=== PATIENT | male | born 1950 | race Caucasian/White ===

== ENCOUNTER → 2017-08-18 | Outpatient (CLI) | payer MEDICARE ==
[~2017-08-18] MED LIST: LORAZEPAM INJ 2 MG/ML VIAL ONE
--- NOTE | 2017-08-18 10:58 | Diagnostic Imaging Report ---
TECHNIQUE: Magnetic resonance imaging of the LEFT SHOULDER was performed WITHOUT injected contrast. COMPARISON: None available. HISTORY: Left shoulder pain FINDINGS: MUSCLES AND TENDONS: Rotator Cuff: Tendons: Supraspinatus: Intact Infraspinatus: Intact Teres Minor: Intact Subscapularis: Intact Muscles: No focal muscle atrophy. Biceps Tendon: The long head of the biceps tendon is intact and within the intertubercular groove. GLENOHUMERAL JOINT: Glenoid Labrum: Superior and posterior labral fraying. Articular Cartilage: Partial thickness close loss. AC JOINT AND ACROMION: Mild hypertrophic degenerative changes of the acromioclavicular joint. The acromion is unremarkable. BONE: No acute fracture. SOFT TISSUES: Mild subacromial subdeltoid bursal fluid. IMPRESSION: Intact rotator cuff without tear. Subacromial subdeltoid bursal fluid may reflect bursitis. Mild glenohumeral and acromioclavicular arthrosis. Signed by: Dr. Juaquin Gamez M.D. on 08/18/2017 10:55 AM
--- NOTE | 2017-08-19 11:02 | Diagnostic Imaging Report ---
Examination: MRI SPINE CERVICAL WITHOUT CONTRAST History: Neck and left arm pain. Weakness and numbness of the left arm. Comparison studies: None Technique: Sagittal T1, T2 and IR, axial T2 and axial gradient echo intravenous contrast: None Findings: Alignment: Reversal of normal cervical lordosis centered at C3-C4. No scoliosis. Cervicomedullary junction: No abnormalities. Patent foramen magnum. Soft tissues: No T2 hyperintense inflammatory changes. Spinal cord: Normal in size with increased T2 signal in the right anterior and midline cord at C5-C6 where there is severe canal stenosis. Vertebrae: No fractures, infection or neoplasm. Degenerative changes: C1-C2: No abnormalities. C2-C3: Diffuse disc osteophyte complex and bilateral uncovertebral and facet arthropathy result in mild left neural foraminal narrowing. No right foraminal or canal stenosis. C3-C4: Central disc protrusion superimposed on a diffuse disc bulge and bilateral uncovertebral and facet arthropathy result in severe right and moderate left neural foraminal narrowing. No canal stenosis. The central disc protrusion contacts the ventral cord. C4-C5: Left central disc osteophyte protrusion superimposed on a diffuse disc osteophyte complex, mild ligamentum flavum thickening and bilateral uncovertebral and facet arthropathy result in moderate canal stenosis and severe bilateral neural foraminal narrowing. The left central disc osteophyte protrusion contacts the left ventral cord. C5-C6: Central disc protrusion superimposed on a diffuse disc osteophyte complex, mild ligamentum flavum thickening and bilateral uncovertebral and facet arthropathy result in severe bilateral neural foraminal narrowing and moderate canal stenosis. C6-C7: Central disc protrusion and an asymmetric to the left disc osteophyte complex, mild ligamentum flavum thickening result in severe bilateral neural foraminal narrowing and mild canal stenosis. C7-T1: Asymmetric to the right disc bulge results in mild right neural foraminal narrowing. No left foraminal or canal stenosis. IMPRESSION: 1. Degenerative changes from C2-C3 through C6-C7 with moderate canal stenosis at C4-C5 and C5-C6 and mild canal stenosis at C6-C7. 2. Severe right and moderate left neural foraminal narrowing at C3-C4 and severe bilateral neural foraminal narrowing at C4-C5, C5-C6 and C6-C7. Signed by: Dr. Shalini Higuera M.D. on 08/19/2017 10:58 AM
== END ==
LOC: MRI 08-10 13:39
PROVIDERS: ATTEND Specialist
DX: M50.20 Other cervical disc displacement, unspecified cervical region (principal); M25.512 Pain in left shoulder
CPT/HCPCS: 72141; 73221; J2060

== ENCOUNTER → 2018-01-07 | Outpatient (CLI) | payer MEDICARE ==
--- NOTE | 2018-01-18 13:50 | Polysomnography ---
DATE OF STUDY: CHIEF COMPLAINT: Excessive daytime fatigue, snoring, and intermittent apnea. INTERPRETATION: The patient came to the laboratory for a split night study but did not meet split night criteria. The patient slept for 166.5 minutes out of 361 minutes. The sleep efficiency was 46.1%. Sleep onset latency was 23 minutes. The latency to REM was 297.5 minutes. The patient spent 0.5% of the night in REM sleep. There were a total of 14 hypopneic events and 275 apneic events. The apnea/hypopnea index was 101.4 events per hour. The minimal saturation was 83%. The minimal heart rate was 29 beats per minute. Patient spent 12.2% of the night in the supine position and the remainder of the night in the non-supine position. The [place] sleep score was 23. IMPRESSION: 1. Poor sleep efficiency suggestive of insomnia. 2. Severe obstructive sleep apnea. RECOMMENDATIONS: 1. Second night sleep study with CPAP titration. 2. Consider a sleep aid such as Ambien or trazodone prior to the second night sleep study to help consolidate sleep. 3. Behavioral measures to help improve insomnia. 4. Avoid alcohol or sedatives prior to retiring at night. 5. Achieve and maintain an ideal body weight. Job#: [id number]
== END ==
LOC: SLEEP 20:08
PROVIDERS: ATTEND Specialist
DX: G47.33 Obstructive sleep apnea (adult) (pediatric) (principal)
CPT/HCPCS: 95810